=== PATIENT | male | born 1960 | race Caucasian/White ===

== ENCOUNTER 2017-09-02 12:35 | Day surgery (SDC) | payer OTHER ==
[2017-09-02] MEDS ORDERED: LIDOCAINE 100 MG SYRINGE (14:22)
[2017-09-02] MEDS ORDERED: PROPOFOL 60 ML (14:22)
== END 2017-09-02 15:30 | disposition home or self-care (01) ==
LOC: GIL 12:35
DX: D12.5 Benign neoplasm of sigmoid colon (principal); K62.1 Rectal polyp; K57.90 Diverticulosis of intestine, part unspecified, without perforation or abscess without bleeding; K64.8 Other hemorrhoids; K20.9 Esophagitis, unspecified; K44.9 Diaphragmatic hernia without obstruction or gangrene; K29.70 Gastritis, unspecified, without bleeding; I10 Essential (primary) hypertension
CPT/HCPCS: 43239; 88305

== ENCOUNTER 2019-03-29 12:11 | Day surgery (SDC) | payer OTHER ==
[2019-03-29] MEDS ORDERED: PROPOFOL 20 ML ×2 (15:42→16:43)
[2019-03-29] MEDS ORDERED: FENTAnyl 50 MCG/ML VIAL (15:42)
== END 2019-03-29 19:16 | disposition home or self-care (01) ==
LOC: GIL 12:11
DX: D12.7 Benign neoplasm of rectosigmoid junction (principal); K20.8 Other esophagitis; K76.6 Portal hypertension; K31.89 Other diseases of stomach and duodenum; I10 Essential (primary) hypertension
CPT/HCPCS: 43235; 88305